=== PATIENT | female | born 1945 | race Caucasian/White ===

== ENCOUNTER 2019-05-31 23:10 | Inpatient (IN) | payer MEDICARE, OTHER ==
[~2019-05-31] VITALS: Ht 167.6 cm; Wt 60.8 kg
[2019-05-31] MEDS ORDERED: ACETAMINOPHEN 325 MG TABLET PO ONE (23:30)
[2019-05-31 23:34] LABS: BASOPHILS # (AUTO) 0.1 /CMM (0.0-0.2); BASOPHILS % (AUTO) 1.1 % (0.0-2.0); EOSINOPHILS % (AUTO) 0.3 % (0.0-6.0); HEMATOCRIT 38 % (33-45); LYMPHOCYTES # (AUTO) 2.2 /CMM (0.8-4.8); LYMPHOCYTES % (AUTO) 23.6 % (20.0-44.0); MEAN CORPUSCULAR HGB CONC 34 g/dl (31.0-36.0); MEAN CORPUSCULAR VOLUME 79 fL (82-100); MONOCYTES # (AUTO) 0.8 /CMM (0.1-1.30); MONOCYTES % (AUTO) 8.4 % (2.0-12.0); NEUTROPHILS # (AUTO) 6.1 /CMM (1.8-8.9); NEUTROPHILS % (AUTO) 66.6 % (43.0-81.0); PLATELET COUNT (AUTO) 274 /CMM (150-450); RED BLOOD CELL COUNT(AUTO) 4.82 MIL/uL (4.0-5.2); WHITE BLOOD COUNT (AUTO) 9.2 K/uL (4.3-11.0)
--- NOTE | 2019-05-31 23:34 | NUR ---
PT CAME FROM HOME C/O ALTERED MENTAL STATUS. PER EMS REPORT, PT WAS ALTERED AND CALLED TO TAKE PATIENT TO ER BY TENANTS. PT USING WORD SALAD. ALERT AND ORIENTED X3 . NO SOB. BREATHING EVENLY AND UNLABORED. NOT IN ANY RESPIRATORY DISTRESS. CONNECTED TO MONITOR.
--- NOTE | 2019-05-31 23:43 | NUR ---
JAVA FRONT END WEB DEVELOPER AT BEDSIDE FOR BLOODDRAW
[2019-05-31] MEDS ORDERED: ACETAMINOPHEN ES 500 MG TABLET ONE (23:45)
[2019-05-31 23:46] LABS: CALCIUM, SERUM 10.5 mg/dL (8.5-10.1); CARBON DIOXIDE 28 mmol/L (21-32); CHLORIDE 103 mmol/L (98-107); CREATININE 0.8 mg/dL (0.6-1.3); GLUCOSE 128 mg/dL (74-106); POTASSIUM 3.9 mmol/L (3.5-5.1); SODIUM SERUM 138 mmol/L (136-145); UREA NITROGEN, BLOOD 22 mg/dL (7-18)
[2019-05-31 23:52] LABS: ACETAMINOPHEN < 2 ug/ml (10-30); ALANINE AMINOTRANSFERASE 16 U/L (12-78); ALBUMIN 3.9 g/dL (3.4-5.0); ALCOHOL, BLOOD < 3 mg/dL (0-0); ALKALINE PHOSPHATASE 109 U/L (46-116); ASPARTATE AMINOTRANSFERASE 20 U/L (15-37); BILIRUBIN,DIRECT 0.1 mg/dL (0.0-0.2); BILIRUBIN,TOTAL 0.6 mg/dL (0.2-1.0); SALICYLATE 0.2 mg/dL (2.8-20.0); TOTAL PROTEIN, SERUM 8.8 g/dL (6.4-8.2)
--- NOTE | 2019-05-31 23:53 | NUR ---
XRAY AT BEDSIDE
--- NOTE | 2019-05-31 23:56 | NUR ---
TAKEN TO CT
[2019-06-01 00:07] LABS: APPEARANCE,URINE Clear (CLEAR); BILIRUBIN,URINE Negative (NEGATIVE); BLOOD, URINE Negative Ery/uL (NEGATIVE); COLOR,URINE Yellow (YELLOW); KETONES,URINE Negative (NEGATIVE); LEUKOCYTE ESTERASE ,URINE Trace (NEGATIVE); NITRITE, URINE Negative (NEGATIVE); PROTEIN,URINE 30 mg/dl (NEGATIVE); UGLUCOSE Negative (NEGATIVE); UROBILINOGEN,URINE 0.2 EU/dL (0.2)
[2019-06-01 00:11] LABS: BACTERIA,URINE Few /HPF (None Seen); RBC,URINE NONE SEEN /HPF (0-2); SQUAMOUS EPITHELIAL CELL,UR Few /HPF (None Seen)
[2019-06-01] MEDS ORDERED: ASPIRIN 325 MG TABLET ONE (00:16)
[2019-06-01 00:17] LABS: SERUM AMMONIA 22 umol/L (11-32)
--- NOTE | 2019-06-01 00:28 | NUR ---
TELE 323 - [id number]
[2019-06-01] MEDS ORDERED: ASPIRIN 325 MG TABLET PO ONE (00:30)
--- NOTE | 2019-06-01 00:35 | NUR ---
REPORT CALLED TO GAMING TABLE OPERATORHANNAH WHITING. PENDING HOSPITAL ADMISSION.
--- NOTE | 2019-06-01 01:21 | NUR ---
ER TALKING TO ADRIANA LUEVANO DNP REGARDING PT ADMISSION.
[2019-06-01 02:00] VITALS: BP 142/102
[2019-06-01] MEDS: CEPHALEXIN MONOHYDRATE 250 MG CAPSULE PO SCH ×2 (02:00→05:00)
[2019-06-01] MEDS: ENOXAPARIN SODIUM 40 MG/0.4 ML DISP.SYRIN SQ SCH ×2 (02:00→20:25)
[2019-06-01] MEDS ORDERED: Z GUARD REMEDY 2 OZ OINT TP PRN (02:00)
[2019-06-01] MEDS ORDERED: ONDANSETRON HCL/PF 4 MG/2 ML VIAL IVP PRN (02:00)
[2019-06-01] MEDS ORDERED: CEPHALEXIN MONOHYDRATE 250 MG CAPSULE PO SCH (02:00)
--- NOTE | 2019-06-01 02:00 | NUR ---
SCHEDULING REPRESENTATIVE ADMITTING NOTES PATIENT RECEIVED VIA GURNEY; ACCOMPANIED BY ER STAFF; PATIENT AWAKE, A/O X3; BREATHING EVEN AND UNLABORED; NO S/S OF ACUTE RESPIRATORY DISTRESS NOTED; FOREARM SCAB NOTED; BILATERAL EAR DRYNESS NOTED; BILATERAL FEET DRY SKIN; L LEG DRYNESS ALSO NOTED; R AC #18, INTACT AND PATENT; NO S/S OF REDNESS OR INFILTRATION; FLUSHING WELL; TELE MONITOR ATTACHED; MONITOR READS SR HR 86; SAFETY PRECAUTIONS IN PLACE; BED LOCKED IN LOW POSITION, BILATERAL UPPER SIDE RAILS X2; CALL LIGHT WITHIN REACH; WILL CONTINUE TO MONITOR
--- NOTE | 2019-06-01 02:00 | NUR ---
PAPER SHEETER NOTES PATIENT REFUSING MEDS AND IV FLUIDS.
--- NOTE | 2019-06-01 02:30 | NUR ---
GRAPHITE MILL OPERATOR NOTES PATIENT REFUSING MEDS AND IV FLUIDS; PATIENT IS AWAKE, A/O X1; CONFUSED; PATIENT BELIEVES PREVIOUS NAME BAND FROM ER WAS CORRECT AND PATIENT STATES HER NAME IS ARVIND JOHNSON AND WOULD LIKE A NEW NAME BAND; PATIENT WAS ASKED FOR HER FORM OF ID IN ORDER TO PRINT CORRECT NAME SHE STATED; PATIENT ALSO REFUSING TO PROVIDE FORM OF ID; PATIENT WAS INFORMED WE ARE UNABLE TO PRINT ANOTHER NAME BAND WITHOUT PROPER FORM OF IDENTIFICATION; PATIENT DID NOT WANT TO TAKE ANY MEDS OR IV FLUIDS WITHOUT CORRECT NAME BAND. PATIENTS STATED SHE WILL NOT BE ABLE TO SLEEP WITHOUT CORRECT NAME BAND. PATIENT REQUESTED STAFF TO GET OUT OF HER ROOM.
[2019-06-01 04:00] VITALS: BP 169/99
[2019-06-01] MEDS: IV D5/0.45 NACL 1,000 ML IV PRN ×2 (04:03→09:09)
--- NOTE | 2019-06-01 05:03 | NUR ---
TOOL OR DIE DRAWING CHECKER NOTES KEFLEX NON-ADMIN; EDUCATION OF IMPORTANCE OF COMPLIANCE AND INTAKE OF MEDICATION DISCUSSED WITH PATIENT; PATIENT STILL REFUSED MEDICATION
--- NOTE | 2019-06-01 06:47 | NUR ---
MS RN CLOSING NOTES PATIENT RESTING IN BED; AWAKE, A/O X2; PATIENT IS CONFUSED; PATIENT TALKING WITH WORD SALAD; BREATHING EVEN AND UNLABORED; NO S/S OF RESPIRATORY DISTRESS NOTED; R AC #18 INTACT AND PATENT; FLUSHING WELL; NO S/S OF REDNESS OR INFILTRATION; EDUCATION AND IMPORTANCE OF COMPLIANCE WITH MEDICATIONS DISCUSSED WITH PATIENT; TO NO AVAIL, PATIENT STILL REFUSING MEDICATION AND IV FLUIDS; SAFETY PRECAUTIONS IN PLACE; BILATERAL UPPER SIDE RAILS X2; CALL LIGHT WITHIN REACH; WILL ENDORSE CONTINUITY OF CARE TO ONCOMING NURSE.
--- NOTE | 2019-06-01 07:45 | NUR ---
TELE/RN NOTE THE PATIENT IS RECEIVED IN BED. PATIENT IS ALERT AND ORIENTED X3. NOTED TO HAVE FREQUENT EPISODES OF TALKING TO SELF BUT WHEN ASSESSED THE PATIENT DENIES HAVING ANY VISUAL OR AUDITORY HALLUCINATIONS. THE PATIENT STATED THAT SHE HAS MULTIPLE NAMES AND JAN MIRANDA IS ONE OF HER NAMES. RAC G 18 PATENT AND SALINE LOCKED. BED LOW AND LOCKED. SIDE RAILS UP X3. BED ALARM ON. CALL LIGHT WITHIN REACH. WILL CONTINUE TO MONITOR.
[2019-06-01] MEDS: ASPIRIN EC 81 MG TABLET.DR PO SCH (09:07)
--- NOTE | 2019-06-01 11:33 | NUR ---
WOUND CARE CONSULT: PT REFUSED SKIN ASSESSMENT AND SCREAMING AT THIS TIME. PER NURSING STAFF, PT HAS VERY DRY SKIN TO EXTREMITIES. RECOMMEND EUCERIN CREAM. DISCUSSED WITH NURSING STAFF. WILL SEE PRN. CURRENT KHOI SCORE IS 15.
--- NOTE | 2019-06-01 12:22 | NUR ---
TELE/RN NOTE RECEIVED PSYCH CONSULT ORDER FROM ALETA MITCHELL. ORDER IS READ BACK, VERIFIED. NOTED AND CARRIED OUT.
--- NOTE | 2019-06-01 13:06 | NUR ---
TELE/RN NOTE ALETA MITCHELL IS MADE AWARE THAT THE PATIENT REFUSED ALL BLOOD DRAWS TODAY, INCLUDING TROPONIN X3. DNP WITH NO NEW ORDERS.
[2019-06-01] MEDS: CEFTRIAXONE 2 G in IV D5W 100 ML IV SCH (13:18)
--- NOTE | 2019-06-01 15:35 | NUR ---
TELE/RN NOTE DNP STEPHEN IS MADE AWARE THAT THE PATIENT PULLED OUT IV LINE FROM RAC AND DOES NOT ALLOW ANOTHER LINE TO BE INSTERED DESPITE EXPLAINING RISKS AND BENEFITS MULTIPLE TIMES. DNP WITH NO NEW ORDERS.
[2019-06-01] MEDS: MINERAL OIL/PETROLATUM,WHITE 120 GM JAR TP SCH (15:47)
--- NOTE | 2019-06-01 18:29 | NUR ---
MS/RN NOTE THE PATIENT IS ALERT AND ORIENTED X3. PATIENT STILL NOTED WITH EPISODES OF TALKING TO SELF BUT STILL DENIES HAVING VISUAL OR AUDITORY HALLUCINATIONS. PATIENT HAS NO IV LINE AND DNP IS AWARE. BED LOW AND LOCKED. SIDE RAILS UP X3. BED ALARM ON. CALL LIGHT WITHIN REACH. WILL ENDORSE TO WEBSITE ADMIN.
--- NOTE | 2019-06-01 19:30 | NUR ---
MS RN OPENING NOTES PATIENT AWAKE IN BED UPON ARRIVAL. A/O X3 BUT IS TALKING TO SELF. PATIENT DENIES VISUAL/AUDITORY HALLUCINATIONS. NO IV PRESENT AT THIS TIME. BED IS LOCKED, ALARM ON, SEMI-DISLA'S POSITION, CALL LIGHT WITHIN REACH. WILL CONTINUE TO MONITOR.
[2019-06-01 20:00] VITALS: BP 143/68
--- NOTE | 2019-06-02 07:41 | NUR ---
MS RN CLOSING NOTES PATIENT AWAKE IN BED. A/O X 2-3. TALKING TO SELF. PATIENT DENIES VISUAL/AUDITORY HALLUCINATIONS. NO IV PRESENT AT THIS TIME. BED IS LOCKED, ALARM ON, SEMI-DISLA'S POSITION, CALL LIGHT WITHIN REACH. WILL ENDORSE TO DAY SHIFT NURSE TO FOLLOW PLAN OF CARE.
[2019-06-02 08:00] VITALS: BP 136/76
--- NOTE | 2019-06-02 08:05 | NUR ---
MS RN OPENING NOTES RECEIVED PATIENT IN BED, AWAKE, A/O X1. PATIENT TALKING TO HERSELF AND SCREAMING FROM TIME TO TIME ABOUT SOME INCOHERENT THINGS. SHE DOES NOT ANSWER TO QUESTIONS APPROPRIATELY. PATIENT BREATHING ON ROOM AIR. BREATHING UNLABORED AND EVEN. NO S/S OF SOB. DENIES PAIN AT THIS TIME. PER INTERLIBRARY LOAN SPECIALIST NURSE PATIENT DENIED ALL HER MEDICATIONS. NO IV LINE PRESENT. PATIENT PULLED IT OUT DURING THE NIGHT AND REFUSES A NEW LINE TO BE STARTED. PHYSICIAN AWARE. SAFETY PRECAUTIONS IN PLACE; BED IN LOW POSITION AND LOCKED, RAILS UP X2, CALL LIGHT WITHIN REACH. WILL CONTINUE TO MONITOR PATIENT.
[2019-06-02] MEDS: ASPIRIN EC 81 MG TABLET.DR PO SCH (08:41)
[2019-06-02] MEDS: MINERAL OIL/PETROLATUM,WHITE 120 GM JAR TP SCH (08:42)
[2019-06-02] MEDS: risperiDONE-M 0.5 MG TAB.RAPDIS PO SCH ×2 (11:30→17:00)
[2019-06-02] MEDS: CEFTRIAXONE 2 G in IV D5W 100 ML IV SCH (13:00)
--- NOTE | 2019-06-02 14:11 | NUR ---
MS RN OPENING NOTES PATIENT STAYS IN THE ROOM AND TALKING TO SELF. WHEN NURSE COMES IN SHE CALMS DOWN. WHEN ASKED IF SHE NEEDS ANYTHING SHE CAN SAY YES OR NO. WHEN TOLD AN IV LINE MUST BE INITIATED SHE SAID NO A FEW TIMES. A FEW ATTEMPTS HAVE BEEN MADE BUT SHE KEEPS REFUSING.
[2019-06-02 16:00] VITALS: BP 146/90
--- NOTE | 2019-06-02 19:40 | NUR ---
MS RN CLOSING NOTES PATIENT STILL IN THE ROOM AND TALKING TO SELF. HAS BEEN TALKING ALL DAY BUT IS NON AGGRESSIVE. WHEN ASKED IF SHE NEEDS ANYTHING SHE CAN SAY YES OR NO. PATIENT REFUSED ALL HER LABS AND MEDICATION THAT SHE HAD FOR TODAY. PHYC CONSULT SCHEDULED FOR TOMORROW. SAFETY PRECAUTIONS IN PLACE: BED IN LOW POSITION AND LOCKED, RAILS UP X 2, CALL LIGHT WITHING REACH. WILL ENDORSE TO SOURCING INTERN NURSE. .
--- NOTE | 2019-06-02 19:40 | NUR ---
MS RN OPENING NOTES PATIENT AWAKE IN BED UPON ARRIVAL. PATIENT A/O X2-3. PATIENT IS TALKING TO SELF. DENIES VISUAL OR AUDITORY HALLUCINATIONS. ON ROOM AIR. NO S/S OF ACUTE RESPIRATORY DISTRESS AND NO COMPLAINTS OF PAIN AT THIS TIME. NO IV PRESENT. BED LOCKED, ALARM ON, SIDE RAILS X2, LOW-DISLA'S POSITION, CALL LIGHT WITHIN REACH. WILL CONTINUE TO MONITOR PATIENT.
[2019-06-02 20:00] VITALS: BP 138/80
[2019-06-02] MEDS: ENOXAPARIN SODIUM 40 MG/0.4 ML DISP.SYRIN SQ SCH (21:00)
[2019-06-03] MEDS: ACETAMINOPHEN 325 MG TABLET PO PRN ×3 (03:28→20:16)
--- NOTE | 2019-06-03 07:07 | NUR ---
MS RN CLOSING NOTES PATIENT SLEEPING IN BED. IN STABLE CONDITION. A/O X 1-2. ON ROOM AIR. NO S/S OF ACUTE RESPIRATORY DISTRESS AND PAIN. NO IV PRESENT. BED LOCKED, ALARM ON, SIDE RAILS X2, CALL LIGHT WITHIN REACH. WILL ENDORSE TO DAY SHIFT NURSE TO FOLLOW PLAN OF CARE.
[2019-06-03 08:00] VITALS: BP 114/65
--- NOTE | 2019-06-03 08:00 | NUR ---
MS RN OPENING NOTES RECEIVED PATIENT SLEEPING IN BED. ON ROOM AIR. NO S/S OF ACUTE RESPIRATORY DISTRESS AND PAIN. NO IV PRESENT. BED LOCKED, ALARM ON, SIDE RAILS X2, CALL LIGHT WITHIN REACH. WILL CONTINUE TO MONITOR PATIENT.
[2019-06-03] MEDS: ASPIRIN EC 81 MG TABLET.DR PO SCH (09:00)
[2019-06-03] MEDS: risperiDONE-M 0.5 MG TAB.RAPDIS PO SCH ×2 (09:00→17:00)
[2019-06-03] MEDS: MINERAL OIL/PETROLATUM,WHITE 120 GM JAR TP SCH (09:00)
[2019-06-03] MEDS ORDERED: OLANZAPINE 10 MG VIAL IM ONE (12:00)
[2019-06-03] MEDS: CEFTRIAXONE 2 G in IV D5W 100 ML IV SCH (13:00)
[2019-06-03 13:08] LABS: BASOPHILS # (AUTO) 0.1 /CMM (0.0-0.2); BASOPHILS % (AUTO) 0.8 % (0.0-2.0); EOSINOPHILS % (AUTO) 1.3 % (0.0-6.0); HEMATOCRIT 39 % (33-45); HEMOGLOBIN 13.1 g/dL (11.5-14.8); LYMPHOCYTES # (AUTO) 2.2 /CMM (0.8-4.8); LYMPHOCYTES % (AUTO) 33.3 % (20.0-44.0); MEAN CORPUSCULAR HGB CONC 34 g/dl (31.0-36.0); MEAN CORPUSCULAR VOLUME 80 fL (82-100); MONOCYTES # (AUTO) 0.7 /CMM (0.1-1.30); MONOCYTES % (AUTO) 11.4 % (2.0-12.0); NEUTROPHILS # (AUTO) 3.5 /CMM (1.8-8.9); NEUTROPHILS % (AUTO) 53.2 % (43.0-81.0); PLATELET COUNT (AUTO) 262 /CMM (150-450); RED BLOOD CELL COUNT(AUTO) 4.88 MIL/uL (4.0-5.2); WHITE BLOOD COUNT (AUTO) 6.6 K/uL (4.3-11.0)
[2019-06-03 13:27] LABS: ALBUMIN 3.7 g/dL (3.4-5.0); BILIRUBIN,TOTAL 0.8 mg/dL (0.2-1.0); CALCIUM, SERUM 9.7 mg/dL (8.5-10.1); CREATININE 0.9 mg/dL (0.6-1.3); POTASSIUM 4.1 mmol/L (3.5-5.1); TOTAL PROTEIN, SERUM 8.2 g/dL (6.4-8.2)
[2019-06-03 16:00] VITALS: BP 138/82
--- NOTE | 2019-06-03 18:52 | NUR ---
MS RN CLOSING NOTES PATIENT IN BED. ON ROOM AIR. NO S/S OF ACUTE RESPIRATORY DISTRESS AND PAIN. NO IV PRESENT. PATIENT SCREAMING ALL DAY AND TOOK MEDICATION TWICE, REFUSING EVERYTHING ELSE. PSYCH EVALUATION CONDUCTED BY DR. RIGGS. WILL RE-EVALUATE TOMORROW ONE MORE TIME. SAFETY PRECAUTIONS IN PLACE: BED IN LOW POSITION AND LOCKED, SIDE RAILS X2, CALL LIGHT WITHIN REACH. WILL ENDORSE TO DIRECTOR GIFT NURSE.
--- NOTE | 2019-06-03 19:49 | NUR ---
MS RN OPENING NOTES PATIENT AWAKE IN BED. A/O X1-2 AND IS TALKING TO SELF. PATIENT ABLE TO RESPOND WHEN ASKED QUESTIONS. DENIES ANY SOB OR PAIN AT THIS TIME. NO IV PRESENT. ON ROOM AIR. BED LOCKED, SIDE RAILS X2, SEMI-DISLA'S POSITION, CALL LIGHT WITHIN REACH. WILL CONTINUE TO MONITOR.
[2019-06-03 20:00] VITALS: BP_SYST 156; BP_SYST 158; BP_DIAS 95
[2019-06-03] MEDS: ENOXAPARIN SODIUM 40 MG/0.4 ML DISP.SYRIN SQ SCH (20:16)
--- NOTE | 2019-06-03 21:00 | NUR ---
MS RN NOTES UPON ASSESSMENT, PATIENT'S LEFT EYE APPEARS RED WITH EYE DRAINAGE/CRUST PRESENT. PATIENT REFUSED FURTHER INSPECTION AND INTERVENTION.
--- NOTE | 2019-06-03 22:00 | NUR ---
MS RN NOTES PATIENT REFUSED SKIN ASSESSMENT AND PHOTOS TO BE TAKEN.
--- NOTE | 2019-06-04 06:15 | NUR ---
MS RN NOTES PATIENT REFUSED MORNING LAB DRAW
--- NOTE | 2019-06-04 07:37 | NUR ---
MS RN CLOSING NOTES PATIENT AWAKE AND SITTING IN CHAIR NEXT TO BEDSIDE. A/OX1 AND IS SCREAMING AND TALKING TO SELF. NO S/S OF ACUTE RESPIRATORY DISTRESS AND NO COMPLAINTS OF PAIN AT THIS TIME. NO IV PRESENT. SAFETY MEASURES IN PLACE. WILL ENDORSE TO DAY SHIFT NURSE TO FOLLOW PLAN OF CARE.
--- NOTE | 2019-06-04 08:00 | NUR ---
MS/RN NOTES PATIENT WITH PINK EYE ON THE LEFT EYE. WILL MONITOR CONTINUOUSLY MONITOR.
[2019-06-04] MEDS: risperiDONE-M 0.5 MG TAB.RAPDIS PO SCH ×2 (09:00→17:26)
[2019-06-04] MEDS: ASPIRIN EC 81 MG TABLET.DR PO SCH (09:00)
[2019-06-04] MEDS: MINERAL OIL/PETROLATUM,WHITE 120 GM JAR TP SCH (09:00)
--- NOTE | 2019-06-04 09:05 | NUR ---
MS/RN OPENING NOTES RECEIVED PATIENT AWAKE AND SITTING IN CHAIR NEXT TO BEDSIDE. A/OX1 AND IS SCREAMING AND TALKING TO SELF. NO S/S OF ACUTE RESPIRATORY DISTRESS AND NO COMPLAINTS OF PAIN AT THIS TIME. NO IV PRESENT. SAFETY MEASURES IN PLACE. WILL CONTINUE TO MONITOR.
--- NOTE | 2019-06-04 09:06 | NUR ---
MS/RN NOTES PATIENT REFUSED TAKING THE MORNING MEDICATION, EXPLAINED THE RISK AND BENEFITS X4 STILL REFUSING. PATIENT HAVE AGGRESSIVE BEHAVIOR NOTED. WILL CONTINUE TO MONITOR. Addendum: 06/04/19 at 1004 by RAMON ALVES RN ERROR PATIENT TAKE THE MORNING MEDS.
--- NOTE | 2019-06-04 10:12 | NUR ---
MS/RN NOTES PATIENT REFUSED FOR MORNING VITALS SIGN.
--- NOTE | 2019-06-04 12:04 | NUR ---
Social service consult requested by Dr. Durán to get more information from the pt. Per MD notes, pt is a 74-year-old female who presents to the emergency department with a history of altered mental status. Per report from EMS pt resides at a back house. and the people living in the front of the house noted the patient was rambling. ETHICS OFFICER met with the pt bedside. Pt was pacing back and forth in her room. Pt. is alert and oriented x 1. Pt appears to be mumbling and having tangential speech. ETHICS OFFICER is unable to assess pt. at this time. Pt. was seen by psychiatrist Dr. Sanchez.
[2019-06-04 17:16] LABS: BASOPHILS % (AUTO) 0.6 % (0.0-2.0); EOSINOPHILS % (AUTO) 0.5 % (0.0-6.0); HEMATOCRIT 35 % (33-45); HEMOGLOBIN 11.8 g/dL (11.5-14.8); LYMPHOCYTES # (AUTO) 1.3 /CMM (0.8-4.8); LYMPHOCYTES % (AUTO) 14.9 % (20.0-44.0); MEAN CORPUSCULAR HGB CONC 33 g/dl (31.0-36.0); MEAN CORPUSCULAR VOLUME 81 fL (82-100); MONOCYTES # (AUTO) 0.7 /CMM (0.1-1.30); MONOCYTES % (AUTO) 8.3 % (2.0-12.0); NEUTROPHILS # (AUTO) 6.8 /CMM (1.8-8.9); NEUTROPHILS % (AUTO) 75.7 % (43.0-81.0); PLATELET COUNT (AUTO) 246 /CMM (150-450); RED BLOOD CELL COUNT(AUTO) 4.37 MIL/uL (4.0-5.2)
[2019-06-04] MEDS: AMOX/CLAVULANATE 875 MG TABLET PO SCH ×2 (17:26→22:16)
[2019-06-04 18:14] LABS: CALCIUM, SERUM 9.8 mg/dL (8.5-10.1); CREATININE 1.2 mg/dL (0.6-1.3); MAGNESIUM 2.1 mg/dL (1.8-2.4); PHOSPHORUS 4.7 mg/dL (2.5-4.9); POTASSIUM 4.5 mmol/L (3.5-5.1)
--- NOTE | 2019-06-04 19:08 | NUR ---
MS RN CLOSING NOTES PATIENT IS SLEEPING ON BEDSIDE COMFORTABLY. A/OX1. SEEN AND EXAMINED BY MD WITH ORDERS NOTED AND CARRIED OUT. NO S/S OF ACUTE RESPIRATORY DISTRESS AND NO COMPLAINTS OF PAIN AT THIS TIME. NO IV PRESENT. SAFETY MEASURES IN PLACE. WILL ENDORSE TO REPRODUCTION PRODUCTION MANAGER NURSE TO FOLLOW PLAN OF CARE.
--- NOTE | 2019-06-04 19:20 | NUR ---
MS RN PM OPENING NOTE BEDSIDE REPORT RECIEVED FROM RAMON YOUNG. PATIENT IS SLEEPING ON BED COMFORTABLY. PATRICIA CANCHOLA AT BEDSIDE TO TRES OBSERVE PATIENT. PATIENT IN NO S/S OF ACUTE RESPIRATORY DISTRESS AND IN NO APPARENT DISTRESS AT THIS TIME. PATIENT APPEARS TO BE RELAXED. NO IV PRESENT PER REPORT TECHNICAL STAFF ASSISTANT STEPHEN AWARE. SAFETY MEASURES IN PLACE. BED DOWN LOCKED SRX2. WILL CONT TO MONITOR.
[2019-06-04 21:31] VITALS: BP 126/55
[2019-06-04] MEDS: ENOXAPARIN SODIUM 40 MG/0.4 ML DISP.SYRIN SQ SCH (22:16)
--- NOTE | 2019-06-05 07:00 | NUR ---
MS RN PM CLOSING NOTE PATIENT IS RESTING ON BED COMFORTABLY AWAKE ALERT ORIENTED X2. PATRICIA SITTERAWAITING FOR REPLACEMENT SITTER AT BEDSIDE TO [facility] OBSERVE PATIENT. PATIENT IN NO S/S OF ACUTE RESPIRATORY DISTRESS AND IN NO APPARENT DISTRESS AT THIS TIME. PATIENT APPEARS TO BE RELAXED. SAFETY MEASURES IN PLACE. BED DOWN LOCKED SRX2. WILL ENDORSE TO ONCOMING SHIFT
[2019-06-05 07:09] LABS: BASOPHILS # (AUTO) 0.1 /CMM (0.0-0.2); BASOPHILS % (AUTO) 0.9 % (0.0-2.0); EOSINOPHILS % (AUTO) 2.7 % (0.0-6.0); HEMATOCRIT 36 % (33-45); HEMOGLOBIN 11.9 g/dL (11.5-14.8); LYMPHOCYTES # (AUTO) 1.3 /CMM (0.8-4.8); LYMPHOCYTES % (AUTO) 25.1 % (20.0-44.0); MEAN CORPUSCULAR HGB CONC 33 g/dl (31.0-36.0); MEAN CORPUSCULAR VOLUME 81 fL (82-100); MONOCYTES # (AUTO) 0.5 /CMM (0.1-1.30); NEUTROPHILS # (AUTO) 3.3 /CMM (1.8-8.9); NEUTROPHILS % (AUTO) 62.3 % (43.0-81.0); PLATELET COUNT (AUTO) 241 /CMM (150-450); RED BLOOD CELL COUNT(AUTO) 4.44 MIL/uL (4.0-5.2); WHITE BLOOD COUNT (AUTO) 5.4 K/uL (4.3-11.0)
[2019-06-05 07:21] LABS: CALCIUM, SERUM 9.5 mg/dL (8.5-10.1); CREATININE 1.1 mg/dL (0.6-1.3); MAGNESIUM 2.1 mg/dL (1.8-2.4); POTASSIUM 4.3 mmol/L (3.5-5.1)
[2019-06-05 08:00] VITALS: BP 123/73
[2019-06-05] MEDS: AMOX/CLAVULANATE 875 MG TABLET PO SCH ×2 (08:18→21:53)
[2019-06-05] MEDS: risperiDONE-M 0.5 MG TAB.RAPDIS PO SCH ×2 (08:18→17:05)
[2019-06-05] MEDS: ASPIRIN EC 81 MG TABLET.DR PO SCH (08:18)
[2019-06-05] MEDS: MINERAL OIL/PETROLATUM,WHITE 120 GM JAR TP SCH (09:00)
[2019-06-05 16:00] VITALS: BP 128/62
--- NOTE | 2019-06-05 18:16 | NUR ---
PATIENT IS RESTING IN BED COMFORTABLY. A/OX1-2. OBSERVED MORE COOPERATIVE AND CALM, MED COMPLIANT. NO S/S OF ACUTE RESPIRATORY DISTRESS AND NO COMPLAINTS OF PAIN AT THIS TIME. NO IV PRESENT, MD AWARE. SAFETY MEASURES IN PLACE. SITTER AT BEDSIDE FOR SAFETY. WILL ENDORSE TO FISH PEDDLER NURSE FOR YAKOV.
--- NOTE | 2019-06-05 19:30 | NUR ---
MS RN NOTE: PATIENT RESTING IN BED, NO ACUTE DISTRESS NOTED. BREATHING EVEN AND UNLABORED, NO SOB NOTED. SITTER AT BEDSIDE. BED LOCKED AND IN LOWEST POSITION, CALL LIGHT IN REACH. WILL CONTINUE TO MONITOR.
[2019-06-05 20:00] VITALS: BP 132/67
--- NOTE | 2019-06-05 20:57 | NUR ---
MS RN NOTE: PATIENT YELLING AND AGITATED, SPOKE TO HEALTH AND HUMAN PERFORMANCE PROFESSOR MD, DR. SOUTH, RECEIVED ORDERS FOR GEODON 3MG IM EVERY 8 HOURS NEEDED. ORDER NOTED AND CARRIED OUT. WILL CONTINUE TO MONITOR.
[2019-06-05] MEDS ORDERED: ZIPRASIDONE MESYLATE 20 MG/VIAL VIAL IM PRN (21:00)
[2019-06-05] MEDS: ENOXAPARIN SODIUM 40 MG/0.4 ML DISP.SYRIN SQ SCH (21:54)
[2019-06-05] MEDS: ACETAMINOPHEN 325 MG TABLET PO PRN (21:58)
[2019-06-05] MEDS ORDERED: ZIPRASIDONE MESYLATE 20 MG/VIAL VIAL IM ONE (22:32)
[2019-06-05] MEDS: ZIPRASIDONE MESYLATE 20 MG/VIAL VIAL IM PRN (23:09)
--- NOTE | 2019-06-05 23:10 | NUR ---
MS RN NOTE: PATIENT YELLING AND AGITATED, GEODON 3MG IM GIVEN TO LEFT DELTOID PER MD ORDER. SITTER AT BEDSIDE, WILL CONTINUE TO MONITOR.
--- NOTE | 2019-06-06 06:05 | NUR ---
MS RN NOTE: PATIENT RESTING IN BED, NO ACUTE DISTRESS NOTED. BREATHING EVEN AND UNLABORED, NO SOB NOTED. SITTER AT BEDSIDE. BED LOCKED AND IN LOWEST POSITION, CALL LIGHT IN REACH. WILL ENDORSE TO DAY NURSE TO CONTINUE WITH PLAN OF CARE.
--- NOTE | 2019-06-06 07:30 | NUR ---
RN MS NOTES PT IN BED, AWAKE, ALERT TO SELF, WITH CONFUSION, NO SIGN OF PAIN, NOT IN DISTRESS, CALL LIGHT WITHIN REACH, SITTER AT BEDSIDE, SAFETY PRECAUTIONS OBSERVED.
[2019-06-06 08:00] VITALS: BP 146/99
[2019-06-06] MEDS: ASPIRIN EC 81 MG TABLET.DR PO SCH (09:01)
[2019-06-06] MEDS: AMOX/CLAVULANATE 875 MG TABLET PO SCH ×2 (09:01→21:19)
[2019-06-06] MEDS: risperiDONE-M 0.5 MG TAB.RAPDIS PO SCH ×2 (09:01→16:29)
[2019-06-06] MEDS: MINERAL OIL/PETROLATUM,WHITE 120 GM JAR TP SCH (09:03)
--- NOTE | 2019-06-06 12:30 | NUR ---
RN MS NOTES PT AWAKE, EATING LUNCH, NO COMPLAINT AT THIS TIME, SEEN BY JESIKA GRIGGS AT BEDSIDE, SAFETY PRECAUTIONS OBSERVED.
[2019-06-06] MEDS ORDERED: ASPI-1152 PO (13:20)
[2019-06-06] MEDS ORDERED: RISP0.5T74 PO (13:20)
[2019-06-06] MEDS ORDERED: Amox/Clavulanate PO (13:20)
[2019-06-06 14:00] VITALS: BP 136/76
--- NOTE | 2019-06-06 18:34 | NUR ---
RN MS NOTES PT AWAKE, IN BED, ALERT TO SELF, DENIES PAIN, WITH CONFUSION, MUMBLES, COMPLIANT WITH MEDS, SNACKS OFFERED, ASSISTED TO BATHROOM NEEDED, ABLE TO FOLLOW INSTRUCTIONS AT TIMES, SAFETY PRECAUTIONS OBSERVED, SITTER AT BEDSIDE, ALL NEEDS ATTENDED.
--- NOTE | 2019-06-06 19:30 | NUR ---
MS RN OPENING NOTES PATIENT SLEEPING IN BED UPON ARRIVAL, EASY TO AWAKEN. SITTER PRESENT AT THE BEDSIDE. A/O X 1-2. ON ROOM AIR. NO S/S OF ACUTE RESPIRATORY DISTRESS OR PAIN AT THIS TIME. NO IV PRESENT. BED LOCKED, ALARM ON, SIDE RAILS X2, CALL LIGHT WITHIN REACH. WILL CONTINUE TO MONITOR.
--- NOTE | 2019-06-06 20:00 | NUR ---
MS RN NOTES PATIENT REFUSED VITAL SIGNS. PATIENT STATED "I DON'T WANT ANYONE TOUCHING ME". WILL TRY TO OBTAIN VITAL SIGNS AT A LATER TIME.
[2019-06-06] MEDS: ENOXAPARIN SODIUM 40 MG/0.4 ML DISP.SYRIN SQ SCH (21:00)
[2019-06-07 05:00] VITALS: BP 127/71
--- NOTE | 2019-06-07 07:21 | NUR ---
MS RN OPENING NOTES RECEIVED PATIENT IN BED RESTING COMFORTABLY IN MODERATE HIGH BACK REST. A/O X1. SITTER PRESENT AT THE BEDSIDE. ON ROOM AIR. NO SIGNS OF DISTRESS NOTED AT THIS TIME. NO IV PRESENT. SAFETY MEASURES IN PLACE, BED LOCKED, ALARM ON, SIDE RAILS X2, CALL LIGHT WITHIN REACH. WILL CONTINUE TO MONITOR.
--- NOTE | 2019-06-07 07:23 | NUR ---
MS RN CLOSING NOTES PATIENT AWAKE AND RESTING IN BED. A/OX1. ON ROOM AIR. SITTER PRESENT AT THE BEDSIDE. NO S/S OF ACUTE RESPIRATORY DISTRESS AND NO COMPLAINTS OF PAIN AT THIS TIME. NO IV PRESENT. BED LOCKED, SIDE RAILS X2, CALL LIGHT WITHIN REACH. WILL ENDORSE TO DAY SHIFT NURSE TO FOLLOW PLAN OF CARE.
[2019-06-07] MEDS: ASPIRIN EC 81 MG TABLET.DR PO SCH (08:29)
[2019-06-07] MEDS: AMOX/CLAVULANATE 875 MG TABLET PO SCH ×2 (08:29→20:51)
[2019-06-07] MEDS: risperiDONE-M 0.5 MG TAB.RAPDIS PO SCH ×2 (08:30→16:21)
[2019-06-07] MEDS: MINERAL OIL/PETROLATUM,WHITE 120 GM JAR TP SCH (08:31)
--- NOTE | 2019-06-07 18:47 | NUR ---
MS RN CLOSING NOTES PATIENT IN BED RESTING COMFORTABLY IN MODERATE HIGH BACK REST. A/O X1. SITTER PRESENT AT THE BEDSIDE. ON ROOM AIR. NO SIGNS OF DISTRESS NOTED THROUGHOUT THE SHIFT. NO IV PRESENT. SAFETY MEASURES IN PLACE, BED LOCKED, ALARM ON, SIDE RAILS X2, CALL LIGHT WITHIN REACH. WILL ENDORSE TO DISPOSAL PLANT OPERATOR NURSE FOR YAKOV.
--- NOTE | 2019-06-07 19:25 | NUR ---
RN Notes Patient awake, alert and oriented x1, confused, mumbling words. No signs of distress and discomfort noted. No IV access, MD aware per RN report. Safety measures in place with sitter at bedside. Will continue to monitor.
[2019-06-07 20:00] VITALS: BP 124/58
[2019-06-07] MEDS: ENOXAPARIN SODIUM 40 MG/0.4 ML DISP.SYRIN SQ SCH (20:51)
--- NOTE | 2019-06-08 02:00 | NUR ---
pt noted talking to herself and rambles and doesn't want to be disturb.re orientation provided Addendum: 06/09/19 at 0541 by TORIE SAVAGE RN MISTAKEN TIME: This documentation time at 06/09/2019 at 0200 not 06/08/2019
[2019-06-08 05:00] VITALS: BP 111/57
--- NOTE | 2019-06-08 06:35 | NUR ---
RN Notes Patient had periods of confusion and agitation last night, managed with reorientation. Vital signs stable, afebrile. Denies any pain and discomfort. Safety measures in place with sitter at bedside. All needs met. Will endorse accordingly.
--- NOTE | 2019-06-08 07:25 | NUR ---
MS RN OPENING NOTES RECEIVED PT IN BED, AWAKE, A/O X1, CONFUSED, WITH 1:1 SITTER AT BEDSITE. PT TOLERATING RA, WITH NO ACUTE RESPIRATORY DISTRESS NOTED. PT DENIES ANY PAIN OR DISCOMFORT AT THIS TIME. PT ALSO DENIES, CONCERNS OR QUESTIONS AT THIS TIME. NO IV ACCESS NOTED. PER NIGHT NURSE, PT FOR DISCHARGE AWAITING FOR PLACEMENT. PT KEPT COMFORTABLE IN BED. CALL LIGHT KEPT WITHIN REACH. PT'S BED IN LOWEST, LOCKED POSITION WITH SR X3. WILL CONTINUE TO MONITOR.
[2019-06-08] MEDS: AMOX/CLAVULANATE 875 MG TABLET PO SCH ×2 (09:00→21:17)
[2019-06-08] MEDS: risperiDONE-M 0.5 MG TAB.RAPDIS PO SCH ×2 (09:00→17:07)
[2019-06-08] MEDS: MINERAL OIL/PETROLATUM,WHITE 120 GM JAR TP SCH (09:04)
[2019-06-08] MEDS: ASPIRIN EC 81 MG TABLET.DR PO SCH (09:04)
--- NOTE | 2019-06-08 09:30 | NUR ---
MS RN NOTES PT REFUSED SOME OF AM MEDS AND 8AM VITALS. SITTER PRESENT AT BEDSIDE. WILL CONTINUE TO MONITOR PT.
[2019-06-08 16:00] VITALS: BP 134/79
--- NOTE | 2019-06-08 18:32 | NUR ---
MS RN CLOSING NOTES PT REMAINS IN BED, AWAKE, A/O X1, CONFUSED, WITH 1:1 SITTER AT BEDSIDE. PT TOLERATING RA, WITH NO ACUTE RESPIRATORY DISTRESS NOTED. PT DENIES ANY PAIN OR DISCOMFORT AT THIS TIME. NO IV ACCESS NOTED. ALL NEEDS AND CARE ATTENDED. PT KEPT COMFORTABLE IN BED. CALL LIGHT KEPT WITHIN REACH. PT'S BED IN LOWEST, LOCKED POSITION WITH SR X3. WILL ENDORSE TO INCOMING MANUFACTURING PLANNER FOR YAKOV.
[2019-06-08 20:00] VITALS: BP 154/74
--- NOTE | 2019-06-08 20:08 | NUR ---
MS RN RECEIVED PATIENT IN BED A/O X 1, STABLE AND NOT IN DISTRESS. WILL CONTINUE TO MONITOR
[2019-06-09] VITALS: BP 92/57
--- NOTE | 2019-06-09 02:00 | NUR ---
pt noted talking to herself and rambles and doesn't want to be disturb.re orientation provided
--- NOTE | 2019-06-09 06:28 | NUR ---
PT STABLE AND NOT IN DISTRESS ALL NEEDS ATTENDED AND ANTICIPATED, AM CARE RENDERED. SAFETY MEASURES AT ALL TIMES. WILL ENDORSE NEXT SHIFT POC.
--- NOTE | 2019-06-09 07:30 | NUR ---
RN MS NOTES PT IN BED, AWAKE, ALERT TO SELF, VERBALLY RESPONSIVE, CONFUSED, NO SIGN OF PAIN OR DISTRESS, CALL LIGHT WITHIN REACH, NEEDS ATTENDED.
[2019-06-09] MEDS: AMOX/CLAVULANATE 875 MG TABLET PO SCH ×3 (09:06→21:27)
[2019-06-09] MEDS: ASPIRIN EC 81 MG TABLET.DR PO SCH (09:07)
[2019-06-09] MEDS: MINERAL OIL/PETROLATUM,WHITE 120 GM JAR TP SCH (09:07)
[2019-06-09] MEDS: risperiDONE-M 0.5 MG TAB.RAPDIS PO SCH ×2 (09:07→16:31)
[2019-06-09] MEDS: ACETAMINOPHEN 325 MG TABLET PO PRN ×2 (09:57→21:27)
[2019-06-09 10:00] VITALS: BP 150/78
[2019-06-09] MEDS: ZIPRASIDONE MESYLATE 20 MG/VIAL VIAL IM PRN (12:09)
--- NOTE | 2019-06-09 12:30 | NUR ---
RN MS NOTES PT IN BED, AWAKE, ALERT TO SELF, VERBALLY RESPONSIVE, WITH EPISODES OF YELLING AND AGITATION, GEODON GIVEN ORDERED, WILL CONTINUE TO MONITOR.
[2019-06-09 16:00] VITALS: BP 127/68
--- NOTE | 2019-06-09 18:34 | NUR ---
RN MS NOTES PT IN BED, AWAKE AND ALERT TO SELF, ABLE TO MAKE NEEDS KNOWN, MUMBLES AND RAMBLES TO HERSELF, DENIES PAIN, NOT IN DISTRESS, TOLERATING CURRENT DIET WELL, CALL LIGHT WITHIN REACH, NEEDS ATTENDED.
--- NOTE | 2019-06-09 19:45 | NUR ---
MS RN RECEIVED PATIENT IN BED SLEEPING CALM, STABLE AND NOT IN DISTRESS. WILL CONTINUE TO MONITOR Addendum: 06/09/19 at 2306 by TORIE SAVAGE RN PT STILL NOTED WITH NO IV PERIPHERAL PT STILL REFUSING DESPITE EXPLAINING RISKS AND BENEFITS Jaret WILLS
[2019-06-09 20:00] VITALS: BP 145/74
--- NOTE | 2019-06-09 21:27 | NUR ---
PT REQUEST TYLENOL PER PT PAIN 3-10 R SHOULDER PAIN. WILL CONTINUE TO MONITOR
--- NOTE | 2019-06-09 21:50 | NUR ---
MS RN PT REFUSED AUGMENTIN PO DUE AT 2100 ATB UPON ADMIN PT VERBALIZED"NO I DONT WANT THIS MEDICATION". DESPITE EXPLAINING RISKS AND BENEFITS. OFFERED 3 TIMES PT REFUSED
--- NOTE | 2019-06-09 22:27 | NUR ---
PT CALM SLEEPING AT THIS TIME
[2019-06-10] MEDS: ACETAMINOPHEN 325 MG TABLET PO PRN ×3 (05:44→18:46)
--- NOTE | 2019-06-10 06:25 | NUR ---
NO SIGNIFICANT CHANGES THROUGHOUT THE SHIFT. CALM AT THIS TIME. ALL NEEDS ATTENDED AND ANTICIPATED. SLEPT WELL 7 HOURS. AM CARE RENDERED, KEPT CLEAN, DRY AND COMFORTABLE AT ALL TIMES. PT TALKING TO HERSELF AT TIMES RE ORIENT PATIENT FREQUENTLY. SAFETY MEASURES AT ALL TIMES. WILL ENDORSE TO NEXT SHIFT POC.
--- NOTE | 2019-06-10 07:30 | NUR ---
RN MS NOTES PT IN BED, AWAKE, ALERT TO SELF, VERBALLY RESPONSIVE, NO COMPLAINT OF PAIN, NOT IN DISTRESS, CALL LIGHT WITHIN REACH, KEPT COMFORTABLE, NEEDS ATTENDED.
[2019-06-10] MEDS: ASPIRIN EC 81 MG TABLET.DR PO SCH (09:07)
[2019-06-10] MEDS: risperiDONE-M 0.5 MG TAB.RAPDIS PO SCH ×2 (09:07→16:32)
[2019-06-10] MEDS: AMOX/CLAVULANATE 875 MG TABLET PO SCH ×3 (09:07→21:00)
[2019-06-10] MEDS: MINERAL OIL/PETROLATUM,WHITE 120 GM JAR TP SCH (09:07)
[2019-06-10] MEDS: ZIPRASIDONE MESYLATE 20 MG/VIAL VIAL IM PRN (12:27)
--- NOTE | 2019-06-10 18:26 | NUR ---
RN MS NOTES PT IN BED, AWAKE, ALERT TO SELF, VERBALLY RESPONSIVE, DENIES PAIN, NOT IN DISTRESS, CALL LIGHT WITHIN REACH, ATE DINNER WITH GOOD APPETITE, DUE MEDS GIVEN, ABLE TO AMBULATE WITH STEADY GAIT TO THE BATHROOM, SAFETY PRECAUTIONS OBSERVED, ALL NEEDS ATTENDED.
--- NOTE | 2019-06-10 19:25 | NUR ---
MS RN OPENING NOTES RECEIVED PATIENT FROM MORNING SHIFT ALERT AND ORIENTED X 2 CONFUSED. VERBALLY RESPONSIVE AND ABLE TO FOLLOW DIRECTIONS. BREATHING REGULAR AND UNLABORED ON ROOM AIR. NO IV ACCESS. REFUSED BODY ASSESSMENT, RISK AND BENEFITS EXPLAINED. NO COMPLAINTS OF PAIN/DISCOMFORT REPORTED OF THE TIME. BED LOW AND LOCKED ON SEMI FOWLERS POSITION. CALL LIGHT IN REACH. WILL CONTINUE TO MONITOR.
[2019-06-10 20:00] VITALS: BP 140/77
--- NOTE | 2019-06-10 20:24 | NUR ---
MS RN NOTES PATIENT REFUSED AUGMENTIN 875MG, RISK AND BENEFITS EXPLAINED. WILL TRY TO OFFER AGAIN LATER.
[2019-06-10 22:00] VITALS: BP 140/77
--- NOTE | 2019-06-10 22:30 | NUR ---
MS RN NOTES PATIENT REFUSED AUGMENTIN 875MG RISK AND BENEFITS EXPLAINED X 3. MEDICATION WASTED IN OMNICELL.
[2019-06-11] MEDS: ZIPRASIDONE MESYLATE 20 MG/VIAL VIAL IM PRN (02:34)
--- NOTE | 2019-06-11 02:40 | NUR ---
MS RN NOTES NOTED WITH EPISODE OF AGITATION, WALKING AROUND THE STATION AND SCREAMING. GEODON 3MG GIVEN INTRAMUSCULARLY. WILL CLOSELY MONITOR.
--- NOTE | 2019-06-11 06:15 | NUR ---
MS RN CLOSING NOTES PATIENT IN BED ALERT AND ORIENTED X 2 CONFUSED. STILL MUMBLES, TALKS TO SELF AND SOMETIMES SCREAMS. VERBALLY RESPONSIVE AND FOLLOWS REDIRECTIONS. BREATHING REGULAR AND UNLABORED ON ROOM AIR. NO IV ACCESS. NO COMPLAINTS OF PAIN/DISCOMFORT REPORTED THE WHOLE SHIFT. NO VERBALIZED SUICIDAL/HOMICIDAL IDEATION AT THIS TIME. BED LOW AND LOCKED ON SEMI FOWLERS POSITION. CALL LIGHT IN REACH. WILL ENDORSE TO MORNING SHIFT FOR YAKOV.
[2019-06-11 06:37] LABS: BASOPHILS # (AUTO) 0.1 /CMM (0.0-0.2); BASOPHILS % (AUTO) 0.9 % (0.0-2.0); EOSINOPHILS % (AUTO) 2.9 % (0.0-6.0); HEMATOCRIT 35 % (33-45); HEMOGLOBIN 11.5 g/dL (11.5-14.8); LYMPHOCYTES # (AUTO) 2.5 /CMM (0.8-4.8); LYMPHOCYTES % (AUTO) 41.9 % (20.0-44.0); MEAN CORPUSCULAR HGB CONC 33 g/dl (31.0-36.0); MEAN CORPUSCULAR VOLUME 81 fL (82-100); MONOCYTES # (AUTO) 0.6 /CMM (0.1-1.30); MONOCYTES % (AUTO) 10.3 % (2.0-12.0); NEUTROPHILS # (AUTO) 2.7 /CMM (1.8-8.9); PLATELET COUNT (AUTO) 264 /CMM (150-450); RED BLOOD CELL COUNT(AUTO) 4.34 MIL/uL (4.0-5.2); WHITE BLOOD COUNT (AUTO) 6.1 K/uL (4.3-11.0)
[2019-06-11 07:07] LABS: CALCIUM, SERUM 9.4 mg/dL (8.5-10.1); CREATININE 0.8 mg/dL (0.6-1.3); POTASSIUM 4.1 mmol/L (3.5-5.1)
--- NOTE | 2019-06-11 07:45 | NUR ---
MS/RN NOTE THE PATIENT IS RECEIVED IN BED. ALERT AND ORIENTED X3 WITH EPISODES OF TALKING TO SELF. DENIES PAIN. IN ROOM AIR AND DENIES SOB. RESPIRATION REGULAR AND UNLABORED. 1:1 SITTER AT THE BEDSIDE. BED LOW AND LOCKED. SIDE RAILS UP X2. CALL LIGHT WITHIN REACH. WILL CONTINUE TO MONITOR.
[2019-06-11] MEDS: ASPIRIN EC 81 MG TABLET.DR PO SCH (08:51)
[2019-06-11] MEDS: risperiDONE-M 0.5 MG TAB.RAPDIS PO SCH ×2 (08:51→15:51)
[2019-06-11] MEDS: AMOX/CLAVULANATE 875 MG TABLET PO SCH ×2 (08:51→08:53)
[2019-06-11] MEDS: MINERAL OIL/PETROLATUM,WHITE 120 GM JAR TP SCH (08:54)
[2019-06-11 16:00] VITALS: BP 150/80
--- NOTE | 2019-06-11 18:08 | NUR ---
MS/RN NOTE THE PATIENT IS ALERT AND ORIENTED X3. THE PATIENT STILL NOTED TALKING TO SELF. DENIES VISUAL, AUDITORY HALLUCINATION. DENIES SI/HI. IN ROOM AIR AND SATURATION IS AT 96%. DENIES SOB. RESPIRATION REGULAR AND UNLABORED. DENIES PAIN. THE PATIENT IN NO APPARENT DISTRESS. NO IV ACCESS. PATIENT HAS STABLE GAIT. 1:1 SITTER PRESENT AT ALL TIMES. BED LOW AND LOCKED. SIDE RAILS UP X2. CALL LIGHT WITHIN REACH. WILL ENDORSE TO TRANSIT MIX OPERATOR.
[2019-06-11 20:00] VITALS: BP 123/66
--- NOTE | 2019-06-11 20:30 | NUR ---
MS RN NOTES RECEIVED ON BED A/O X2-3,ABLE TO STATE HER NAME AND AND BIRTHDAY,TALKING TO SELF.NO IV ACCESS,WALKS AT TIMES WITH STEADY GAIT.SITTER AT BEDSIDE FOR SAFETY.CALL LIGHT IN REACH,NEEDS ANTICIPATED.
[2019-06-11] MEDS: ACETAMINOPHEN 325 MG TABLET PO PRN (21:40)
--- NOTE | 2019-06-11 21:40 | NUR ---
MS RN NOTES C/O PAIN RIGHT SHOULDER 3/10 ON PAIN SCALE,MEDICATED WITH TYLENOL 650MG PO ORDERED.SITTER AT BEDSIDE.
--- NOTE | 2019-06-12 03:00 | NUR ---
MS RN NOTES AWAKE,WALKING AROUND THE HALLWAYS,ACCOMPANIED BY JESIKA HUGHES.
--- NOTE | 2019-06-12 06:40 | NUR ---
MS RN NOTES AWAKE,SITTING ON BEDSIDE CHAIR,TALKING TO SELF,DRINKING JUICE.SCREAMS AT TIMES.NON COMBATIVE,MED COMPLIANT.SLEPT 2 HOURS LAST.FOR D/C PLANNING,AWAITING PLACEMENT.IN NO ACUTE DISTRESS.
--- NOTE | 2019-06-12 07:30 | NUR ---
MS/RN NOTE THE PATIENT IS ALERT AND ORIENTED X3. STILL NOTED TALKING TO SELF. DENIES SI/HI/ PATIENT DENIES VISUAL, HALLUCINATION HALLUCINATION. IN ROOM AIR AND DENIES SOB. RESPIRATION REGULAR AND UNLABORED. DENIES PAIN. THE PATIENT IN NO APPARENT DISTRESS. PATIENT DOES NOT HAVE IV ACCESS.1:1 SITTER AT THE BEDSIDE. BED LOW AND LOCKED. SIDE RAILS UP X2. CALL LIGHT WITHIN REACH. WILL CONTINUE TO MONITOR.
[2019-06-12 08:00] VITALS: BP 160/76
[2019-06-12] MEDS: ASPIRIN EC 81 MG TABLET.DR PO SCH (09:39)
[2019-06-12] MEDS: risperiDONE-M 0.5 MG TAB.RAPDIS PO SCH ×2 (09:39→16:06)
[2019-06-12] MEDS: ACETAMINOPHEN 325 MG TABLET PO PRN ×3 (09:39→23:27)
[2019-06-12] MEDS: MINERAL OIL/PETROLATUM,WHITE 120 GM JAR TP SCH (09:43)
[2019-06-12 16:00] VITALS: BP 129/67
--- NOTE | 2019-06-12 16:09 | NUR ---
MS/RN NOTE PATIENT COMPLAINS OF RIGHT SHOULDER PAIN 06/18. TYLENOL 650 MG PO GIVEN. WILL CONTINUE TO MONITOR.
--- NOTE | 2019-06-12 18:35 | NUR ---
MS/RN NOTE THE PATIENT IS ALERT AND ORIENTED X3. PATIENT HAS FREQUENT EPISODES OF TALKING TO SELF. DENIES PAIN. IN ROOM AIR AND SATURATION IS AT 97%. RESPIRATION REGULAR AND UNLABORED. DENIES PAIN. 1:1 PRESENT AT ALL TIMES. BED LOW AND LOCKED. SIDE RAILS UP X3. CALL LIGHT WITHIN REACH. 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
--- NOTE | 2019-06-12 19:30 | NUR ---
MS RN NOTES RECEIVED AWAKE,SITTING ON BEDSIDE CHAIR,TALKING TO SELF,LABILE,WRITING NOTES ON PAPER.NO IV ACCESS.AMBULATES WITH STEADY GAIT,SITTER AT BEDSIDE FOR SAFETY.WILL CONTINUE TO MONITOR BEHAVIOR.
[2019-06-12 20:00] VITALS: BP_SYST 130; BP_SYST 157; BP_DIAS 63; BP_DIAS 75
--- NOTE | 2019-06-12 23:37 | NUR ---
MS RN NOTES C/O RIGHT SHOULDER PAIN,MEDICATED WITH TYLENOL; 650MG PO ORDERED.
--- NOTE | 2019-06-13 01:59 | NUR ---
MS RN NOTES LABILE,TALKING TO SELF.
--- NOTE | 2019-06-13 06:09 | NUR ---
MS RN NOTES AWAKE MOST OF THE NIGHT,SLEPT ONLY AN HOUR.TALKING TO SELF WHEN AWAKE.WALKS ON THE HALLWAYS ACCOMPANIED BY SITTER.RE DIRECTABLE,FOLLOW INSTRUCTION.FOR D/C PLANNING,AWAITING FOR PLACEMENT.
--- NOTE | 2019-06-13 07:30 | NUR ---
ms rn received on bed, awake,very confuse,not in any form of distress,respirations even and unlabored,no sob noted, lungs are clear,abdomen soft,positive bowel sound,denies pain at this time all needs attended.
--- NOTE | 2019-06-13 09:40 | NUR ---
ms chris breakfast served,due meds given,tolerated well.
[2019-06-13] MEDS: ACETAMINOPHEN 325 MG TABLET PO PRN ×2 (09:44→17:30)
[2019-06-13] MEDS: ASPIRIN EC 81 MG TABLET.DR PO SCH (09:44)
[2019-06-13] MEDS: risperiDONE-M 0.5 MG TAB.RAPDIS PO SCH ×2 (09:47→17:31)
--- NOTE | 2019-06-13 15:59 | NUR ---
ms rn on bed, no distress noted.
[2019-06-13] MEDS: MINERAL OIL/PETROLATUM,WHITE 120 GM JAR TP SCH (17:33)
--- NOTE | 2019-06-13 17:54 | NUR ---
ms rn on bed, sleeping,all needs attended.
--- NOTE | 2019-06-13 19:45 | NUR ---
MS RN NOTES RECEIVED SLEEPING THIS TIME,BREATHING EASY,NO SOB,NO IV ACCES,WILL CONTINUE TO MONITOR STATUS.SITTER AT BEDSIDE FOR SAFETY.
[2019-06-13 20:00] VITALS: BP 148/71
[2019-06-14] MEDS: ACETAMINOPHEN 325 MG TABLET PO PRN ×3 (00:06→23:16)
--- NOTE | 2019-06-14 00:06 | NUR ---
MS RN NOTES C/O RIGHT SHOULDER PAIN 3/10 ON PAIN SCALE.MEDICATED WITH TYLENOL 650MG PO PER PATIENT REQUEST.
--- NOTE | 2019-06-14 06:28 | NUR ---
MS RN NOTES AWAKE,SITTING ON BEDSIDE CHAIR,MORE CALM THIS MORNING.STILL WAITING FOR SNF PLACEMENT.
--- NOTE | 2019-06-14 07:50 | NUR ---
MS/RN Opening Note Received patient AO x 2-3, confuse, able to responds all stimuli. Pt does no appears pain or any discomfort. Respiratory even and unlabored in room air, skin is warm to touch, clean/dry. Sitter at bed side for patient safety. Call light within reach, will continue to monitor.
[2019-06-14] MEDS: risperiDONE-M 0.5 MG TAB.RAPDIS PO SCH ×3 (08:59→16:10)
[2019-06-14] MEDS: ASPIRIN EC 81 MG TABLET.DR PO SCH (08:59)
[2019-06-14] MEDS: MINERAL OIL/PETROLATUM,WHITE 120 GM JAR TP SCH (09:00)
--- NOTE | 2019-06-14 18:30 | NUR ---
MS/RN Closing Note Patient on chair, watching TV, no c/o pain or any discomfort. Skin is warm to touch, clean/dry. Respiratory even and unlabored, no SOB or distress observed, kept lower position of bed, sitter at bed side for patient safety. Call light within reach, will endorse night nurse.
--- NOTE | 2019-06-14 20:03 | NUR ---
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 PT IN THE ROOM, TALKING TO HERSELF, PT UNCOOPERATIVE, DOESN'T WANT TO BE TOUCH, UPDATED CARE BOARD BUT PT ERASE INFORMATION SOON RN STEP OUT. PER REPORT PT HAS EPISODE OF ROAMING AROUNF GOING FROM ROOM TO ROOM. SITTER AT BED SIDE. PT HAS NO IV ACCESS, MD AWARE. PT ALSO REFUSING VS AT THIS TIME, EDUCATION PROVIDED TO PT. PT INSISTED ON WEARING OWN CLOTHING. SAFETY PRECAUTIONS FOR FALL INITIATED, CALL LIGHT IN REACH, WILL CONTINUE MONITORING PT.
--- NOTE | 2019-06-14 21:30 | NUR ---
RN NOTES: HOSPITALIST CURRENTLY IN THE UNIT, MADE AWARE OF PT'S REFUSAL FOR VS. NO NEW ORDERS RECEIVED.
--- NOTE | 2019-06-14 21:54 | NUR ---
RN NOTES: SEEN PT SLEEPING AT THIS TIME, APPEARS COMFORTABLE. SITTER AT BED SIDE.
[2019-06-14 23:00] VITALS: BP 140/67
--- NOTE | 2019-06-14 23:16 | NUR ---
prn tylenol: pt agree for vital sign, but also requesting for tylenol for her shoulder pain. prn tylenol 650 mg tab po administered to pt at this time. pt was provided with snacks. will continue to monitor and reassess pt.
--- NOTE | 2019-06-15 06:51 | NUR ---
END OF SHIFT REPORT: PT REMAINS TO REFUSED CARE, AND VITAL SIGNS. SITTER AT BED SIDE. PT REMAINS TALKING TO HERSELF. NO IV ACCESS MD AWARE. AWAITING FOR PLACEMENT, CM ON CASE. SAFETY PRECAUTIONS FOR FALL REMAINS ENGAGED, CALL LIGHT IN REACH, WILL ENDORSE TO DAY RN FOR CONTINUITY OF CARE.
--- NOTE | 2019-06-15 08:00 | NUR ---
MS RN NOTES PATIENT IN BED RESTING WITH SITTER NO SOB OR ACUTE DISTRESS NOTED. PATIENT ALERT, ORIENTED X 1. PATIENT NONE COMPLIANT. SEEN TALKING TO SELF. BED IN LOW LOCKED POSITION CALL LIGHT WITHIN REACH. WILL CONTINUE TO MONITOR.
[2019-06-15] MEDS: ACETAMINOPHEN 325 MG TABLET PO PRN (08:14)
[2019-06-15] MEDS: ASPIRIN EC 81 MG TABLET.DR PO SCH (08:14)
[2019-06-15] MEDS: risperiDONE-M 0.5 MG TAB.RAPDIS PO SCH ×3 (08:15→17:58)
[2019-06-15] MEDS: MINERAL OIL/PETROLATUM,WHITE 120 GM JAR TP SCH (08:29)
[2019-06-15] MEDS: ZIPRASIDONE MESYLATE 20 MG/VIAL VIAL IM PRN (16:02)
[2019-06-15 17:52] VITALS: BP 177/70
[2019-06-15] MEDS ORDERED: CLONIDINE HCL 0.1 MG TABLET PO ONE (18:00)
--- NOTE | 2019-06-15 18:30 | NUR ---
MS RN NOTES PATIENT DISCHARGED TO [facility] IN STABLE CONDITION. PATIENT REFUSED PICTURES. ALL BELONGINGS ACCOUNTED FOR. BELONGING LIST SIGNED BY TWO RNS DUE TO PATIENT BEING CONFUSED. PATIENTS BLOOD PRESSURE NOTED TO BE 170/[address] MOSCOSO MADE AWARE ORDERS FOR ONE TIME CLONODINE 0.2MG. ORDERS NOTED AND CARRIED OUT. BP RECHECKED 15 MIN POST MEDICATIONS NOTED WITH BP OF 155/72. PATIENT DISCHARGED TO SNF VIA AMBULANCE WITH EMT. REPORT GIVEN TO TRACEE YOUNG AT [facility].
== END 2019-06-15 18:27 | disposition left against medical advice (07) | DRG 157 ==
LOC: ER 23:12 → TELE 06-01 01:28 → MED 06-01 08:12
PROVIDERS: ADMIT Nurse Practitioner Acute Care; ATTEND Nurse Practitioner Acute Care
DX: K04.7 Periapical abscess without sinus (principal); I21.A1 Myocardial infarction type 2; G93.41 Metabolic encephalopathy; N39.0 Urinary tract infection, site not specified; I10 Essential (primary) hypertension; Z85.41 Personal history of malignant neoplasm of cervix uteri; E83.52 Hypercalcemia; E86.0 Dehydration; M25.511 Pain in right shoulder; F29 Unspecified psychosis not due to a substance or known physiological condition; M12.9 Arthropathy, unspecified; M47.812 Spondylosis without myelopathy or radiculopathy, cervical region; M48.02 Spinal stenosis, cervical region; B96.89 Other specified bacterial agents as the cause of diseases classified elsewhere
CPT/HCPCS: 36415; 70450-TC; 70486-TC; 71045-TC; 72125-TC; 73030-TC; 80048-TC; 80053-TC; 80076-TC; 80305; 81000-TC; 82140-TC; 82962-TC; 83605-TC; 83735-TC; 84100-TC; 84484-TC; 85025-TC; 85730-TC; 87040-TC; 87081-TC; 93307-TC; G0378; G0480; J0696; J1650; J3486; J3490; J7060